=== PATIENT | female | born 1995 | race Caucasian/White ===

== ENCOUNTER → 2016-09-22 | Outpatient (CLI) | payer BC ==
[2016-09-22 15:47] LABS: BASOPHILS # (AUTO) 0.02 10*3/UL; BASOPHILS % (AUTO) 0.2 % (0-1); EOSINOPHILS # (AUTO) 0.06 10*3/UL; EOSINOPHILS % (AUTO) 0.6 % (0-8); HEMATOCRIT 34.4 % (37.0-47.0); HEMOGLOBIN 12.4 g/dL (12.0-16.0); LYMPHOCYTES # (AUTO) 2.19 10*3/uL; MEAN CORPUSCULAR HEMOGLOBIN 31.8 PG (27-31); MEAN CORPUSCULAR VOLUME 88.2 FL (81-99); MEAN PLATELET VOLUME 10.3 FL (7.4-12.2); MONOCYTES # (AUTO) 0.78 10*3/UL (0.3-0.8); MONOCYTES % (AUTO) 7.3 % (5-15); NEUTROPHILS # (AUTO) 7.67 10*3/UL; NEUTROPHILS % (AUTO) 71.3 % (50-80)
[2016-09-22 16:21] LABS: HIV ANTIBODY NEGATIVE (N); HIV-1 P24 ANTIGEN NEGATIVE (N)
[2016-09-22 16:30] LABS: PLATELET MORPHOLOGY COMMENT NORMAL MORPHOLOGY (NORM); RBC MORPHOLOGY COMMENT NORMAL MORPHOLOGY (NORM); WBC MORPHOLOGY COMMENT NORMAL MORPHOLOGY (NORM)
== END ==
LOC: MOB LAB 14:53
PROVIDERS: ATTEND Obstetrics & Gynecology
DX: Z36 Encounter for antenatal screening of mother (principal); Z3A.17 17 weeks gestation of pregnancy
CPT/HCPCS: 80081; 86900; 86901; 87491; 87591

== ENCOUNTER → 2016-09-29 | Outpatient (CLI) | payer OTHER, BC ==
--- NOTE | 2016-09-29 15:39 | DI ---
LIMITED OBSTETRICAL ULTRASOUND, 09/29/2016 2:14 PM Clinical History: Late onset of care. No care in current in second trimjam[address] ter. Previous Exam: None at this facility for this . LMP: 05/23/2016. There is a single live IUP currently in vertex presentation. Amnionic fluid content is normal. activity is observed as follows: cardiac and extremity. The placenta is anterior corpus and Grade 1. heart rate is 155 beats/minute and regular. BPD, HC, AC, and FL measurements are 39 mm, 147 mm, 126 mm, and 28 mm, respectively. These measurements correspond to EGA values of 18 weeks 0 days, 17 weeks 6 days, 18 weeks 2 days, and 18 weeks 4 days, respectively. Composite EGA is 18 weeks 2 days. T he US EDC is 02/28/2017 EDC by stated LMP is 02/27/2017. Readin. Single live fetus with vertex presentation and normal amniotic fluid content. Placenta is anterio r corpus and grade 1. 2. The composite EGA is 18 weeks 2 days with an ultrasound EDC of 02/28/2017. Based on the given LMP dates of 05/23/2016, the EDC would be 02/27/2017.
== END ==
LOC: US 13:40
PROVIDERS: ATTEND Obstetrics & Gynecology
DX: Z36 Encounter for antenatal screening of mother (principal); Z3A.18 18 weeks gestation of pregnancy
CPT/HCPCS: 76815